=== PATIENT | male | born 1980 | race Caucasian/White ===

== ENCOUNTER 2017-05-20 22:21 | Emergency (ER) | payer SELFPAY ==
--- NOTE | 2017-05-20 23:05 | NUR ---
PATIENT LEFT WITHOUT BEING SEEN BY DR. Ventura. NO FURTHER CARE PROVIDED FOR PATIENT.
== END 2017-05-20 23:05 | disposition left against medical advice (07) ==
LOC: MED 22:21
DX: R10.9 Unspecified abdominal pain (principal); Z53.21 Procedure and treatment not carried out due to patient leaving prior to being seen by health care provider